=== PATIENT | female | born 1990 | race Caucasian/White ===

== ENCOUNTER 2021-09-03 14:16 | Emergency (ER) | payer BC ==
[~2021-09-03] VITALS: Ht 175.3 cm; Wt 88.5 kg
[2021-09-03 14:22] VITALS: BP 156/85
--- NOTE | 2021-09-03 16:32 | NUR ---
REINALDO BALDERAS EXAMINING PT
[2021-09-03] MEDS ORDERED: CEPH-588 PO (16:37)
--- NOTE | 2021-09-03 16:51 | NUR ---
DR SUMMERS EXAMINING PT
--- NOTE | 2021-09-03 17:00 | NUR ---
no nursing interventions done at this time
--- NOTE | 2021-09-03 17:05 | NUR ---
Patient discharged with v/s stable. Written and verbal after care instructions given and explained. Patient alert, oriented and verbalized understanding of instructions. Ambulatory with steady gait. All questions addressed prior to discharge. ID band removed. Patient advised to follow up with PMD. Rx of cephalxein (sent) given. Patient educated on indication of medication including possible reaction and side effects. Opportunity to ask questions provided and answered.
== END 2021-09-03 17:05 | disposition home or self-care (01) ==
LOC: MED 14:16
DX: N39.0 Urinary tract infection, site not specified (principal); Z79.899 Other long term (current) drug therapy
CPT/HCPCS: 81002; 81025; 99283